=== PATIENT | male | born 1955 | race Caucasian/White ===

== ENCOUNTER 2020-07-28 08:03 | Outpatient (REF) | payer BC, SELFPAY ==
[2020-07-28 08:52] LABS: MANUAL DIFF FLAG NO
[2020-07-28 08:59] LABS: Basophils Percent Auto 0.5 % (0-2); Eosinophils Absolute Auto 0.1 X10*3/uL (0.0-0.4); Eosinophils Percent Auto 1.5 % (0-4); Hematocrit 41.7 % (42-52); Hemoglobin 13.8 g/dl (14.0-18.0); Imm Gran Abs Auto 0.03 X10*3/uL (0.00-0.03); Imm Gran Pct Auto 0.4 % (0.0-0.4); Lymphocytes Absolute Auto 2.4 X10*3/uL (1.2-4.9); Mean Corpuscular HGB Conc 33.1 g/dl (31.0-36.0); Mean Corpuscular Hemoglobin 31.2 pg (27.0-33.0); Mean Corpuscular Volume 94.3 fL (80-98); Mean Platelet Volume 10.1 fL (9.4-12.4); Monocytes Absolute Auto 0.6 X10*3/uL (0.1-1.2); Monocytes Percent Auto 7.1 % (2-11); Neutrophils Absolute Auto 4.6 X10*3/uL (2.0-8.3); Neutrophils Percent Auto 59.5 % (45-73); Platelet Count 256 X10*3/uL (160-400); Red Blood Count 4.42 X10*6/uL (4.60-5.80); Red Cell Distribution Width 13.8 % (11.0-16.0); White Blood Count 7.8 X10*3/uL (4.8-10.8)
[2020-07-28 09:21] LABS: Alanine Aminotransferase 23 U/L (0-40); Albumin Level 4.3 g/dL (3.5-5.0); Alkaline Phosphatase 51 U/L (39-117); Anion Gap 11 (12-20); Aspartate Amino Transferase 21 U/L (5-37); Bilirubin Total 0.9 mg/dL (0.0-1.0); Blood Urea Nitrogen 13 mg/dL (9-16); Carbon Dioxide 30 mmol/L (22-29); Chloride 104 mmol/L (96-108); Cholesterol 249 mg/dL; Estimated Glomerular Filt Rate > 60; Glucose Fasting 97 mg/dL (60-99); HDL Cholesterol 55 mg/dL; LDL Cholesterol Calculated 179 mg/dl; Potassium 4.8 mmol/L (3.3-5.1); Sodium 140 mmol/L (135-145); Total Protein 6.9 g/dL (6.5-8.0); Triglycerides 77 mg/dL
[2020-07-28 09:41] LABS: TSH reflex Free T4 0.51 uIU/mL (0.32-4.0)
[2020-07-30 05:02] LABS: Folate 10.1 ng/mL (> or = 4.0); Vitamin B12 443 pg/mL (200-900)
== END 2020-07-28 08:04 | disposition home or self-care (01) ==
LOC: HO.LAB 08:03
PROVIDERS: Visit Provider Internal Medicine
DX: Z12.5 Encounter for screening for malignant neoplasm of prostate (principal); N40.0 Benign prostatic hyperplasia without lower urinary tract symptoms; E78.00 Pure hypercholesterolemia, unspecified; N50.819 Testicular pain, unspecified; M19.90 Unspecified osteoarthritis, unspecified site
CPT/HCPCS: 36415; 80053; 80061; 82607; 82746; 84153; 84443; 85025

== ENCOUNTER 2021-07-24 14:42 | Outpatient (REF) | payer BC, SELFPAY ==
--- NOTE | ~2021-07-24 | XR_ITS ---
EXAMINATION: XR CHEST CLINICAL INFORMATION: Cough. COMPARISON: None TECHNIQUE: 2 views of the chest were obtained. FINDINGS: The lungs are hyperinflated but clear of acute process. The heart size and pulmonary vascularity is normal. No gross bony abnormality seen. XR/XR chest 2V IMPRESSION: Hyperinflated lungs without acute process.
[2021-07-24 15:05] LABS: MANUAL DIFF FLAG NO
[2021-07-24 15:14] LABS: Basophils Percent Auto 0.4 % (0-2); Eosinophils Percent Auto 0.6 % (0-4); Hematocrit 40.4 % (42.0-52.0); Hemoglobin 13.6 g/dl (14.0-18.0); Imm Gran Abs Auto 0.02 X10*3/uL (0.00-0.03); Imm Gran Pct Auto 0.3 % (0.0-0.4); Immature Retic Fraction 2.3 % (2.3-13.4); Lymphocytes Absolute Auto 1.9 X10*3/uL (1.2-4.9); Lymphocytes Percent Auto 26.9 % (20-40); Mean Corpuscular HGB Conc 33.7 g/dl (31.0-36.0); Mean Corpuscular Hemoglobin 31.2 pg (27.0-33.0); Mean Corpuscular Volume 92.7 fL (80.0-98.0); Monocytes Absolute Auto 0.7 X10*3/uL (0.1-1.2); Monocytes Percent Auto 10.5 % (2-11); Neutrophils Absolute Auto 4.2 x10*3/uL (2.0-8.3); Neutrophils Percent Auto 61.3 % (45-73); Platelet Count 223 X10*3/uL (160-400); Red Blood Count 4.36 X10*6/uL (4.60-5.80); Retic HGB Equivalent 35.6 pg (30.0-35.0); Reticulocyte Percent 0.8 % (0.5-1.8); Reticulocytes Absolute 0.034 X10*6/uL (0.026-0.095); White Blood Count 6.9 X10*3/uL (4.8-10.8)
[2021-07-24 15:35] LABS: Alanine Aminotransferase 22 U/L (0-40); Albumin Level 4.3 g/dL (3.5-5.0); Alkaline Phosphatase 56 U/L (39-117); Anion Gap 12 (12-20); Aspartate Amino Transferase 23 U/L (5-37); Bilirubin Total 0.5 mg/dL (0.0-1.0); Blood Urea Nitrogen 12 mg/dL (9-16); Calcium 9.6 mg/dL (8.4-10.2); Carbon Dioxide 31 mmol/L (22-29); Chloride 101 mmol/L (96-108); Cholesterol 247 mg/dL; Estimated Glomerular Filt Rate > 60; Glucose Random 114 mg/dL (60-115); HDL Cholesterol 50 mg/dL; Iron 57 mcg/dL (45-160); LDL Cholesterol Calculated 179 mg/dl; Percent Iron Saturation 20 % (15-50); Potassium 3.9 mmol/L (3.3-5.1); Sodium 140 mmol/L (135-145); Total Iron Binding Capacity 292 mcg/dL (228-428); Triglycerides 93 mg/dL; Unsaturated Iron Binding 235 ug/dL
[2021-07-24 15:55] LABS: Ferritin 165 ng/mL (20-250)
[2021-07-24 16:06] LABS: Folate 10.3 ng/mL (> or = 4.0); Vitamin B12 585 pg/mL (200-900)
== END 2021-07-24 14:43 | disposition home or self-care (01) ==
LOC: HO.XRAY 14:42
PROVIDERS: Absent Provider Nurse Practitioner Family; PCP Internal Medicine; Visit Provider Internal Medicine
DX: R05.9 Cough, unspecified (principal); E78.00 Pure hypercholesterolemia, unspecified; D64.9 Anemia, unspecified
CPT/HCPCS: 36415; 71046; 80053; 80061; 82607; 82728; 82746; 83540; 85025; 85045

== ENCOUNTER 2021-08-27 15:43 | Outpatient (REF) | payer BC, SELFPAY ==
--- NOTE | 2021-08-27 07:57 | PFT_ITS ---
INDICATION: Cough. SPIROMETRY: FEV1 to FVC 73% with an FEV1 of 3.65 L, which is 98% predicted, an FVC of 5.02 L, which is 101% predicted. No significant response to bronchodilators noted. Maximum voluntary ventilation 103% predicted. LUNG VOLUMES: Total lung capacity 99% predicted. DIFFUSION CAPACITY: DLCO 67% predicted. COMPARISONS: None. INTERPRETATION: No definitive obstructive nor restrictive ventilatory defects identified. No significant response to bronchodilators noted. Normal maximum voluntary ventilation. Lung volumes are also within normal limits. The patient does have a mild isolated diffusion impairment. Need to consider underlying pulmonary vascular conditions or occult interstitial lung conditions. Also need to correct for hemoglobin. If asthma is in the differential, methacholine challenge may be helpful in assessing for hyper-reactive airways. Otherwise, clinical correlation warranted. MD YANDY You/WANDA / [id number]
== END 2021-08-27 15:44 | disposition home or self-care (01) ==
LOC: HO.RESP 15:43
PROVIDERS: PCP Internal Medicine; Visit Provider Nurse Practitioner Family
DX: R05.9 Cough, unspecified (principal)
CPT/HCPCS: 94060; 94727; 94729

== ENCOUNTER → 2021-10-08 14:39 | Outpatient (BNVA) | payer BC, SELFPAY | PROVIDERS: PCP Internal Medicine; Visit Provider Internal Medicine Pulmonary Disease | DX: R94.2 Abnormal results of pulmonary function studies (principal) ==

== ENCOUNTER 2022-03-13 08:13 | Outpatient (REF) | payer MEDICARE, MEDICAID, SELFPAY ==
[2022-03-13 08:41] LABS: MANUAL DIFF FLAG NO
[2022-03-13 09:12] LABS: Basophils Percent Auto 0.5 % (0-2); Eosinophils Absolute Auto 0.1 X10*3/uL (0.0-0.4); Eosinophils Percent Auto 1.2 % (0-4); Hematocrit 43.9 % (42.0-52.0); Hemoglobin 14.4 g/dl (14.0-18.0); Imm Gran Abs Auto 0.03 X10*3/uL (0.00-0.03); Imm Gran Pct Auto 0.5 % (0.0-0.4); Immature Retic Fraction 5.4 % (2.3-13.4); Lymphocytes Percent Auto 33.9 % (20-40); Mean Corpuscular HGB Conc 32.8 g/dl (31.0-36.0); Mean Corpuscular Hemoglobin 30.6 pg (27.0-33.0); Mean Corpuscular Volume 93.4 fL (80.0-98.0); Mean Platelet Volume 10.4 fL (9.4-12.4); Monocytes Absolute Auto 0.4 X10*3/uL (0.1-1.2); Monocytes Percent Auto 7.2 % (2-11); Neutrophils Absolute Auto 3.4 x10*3/uL (2.0-8.3); Neutrophils Percent Auto 56.7 % (45-73); Platelet Count 229 X10*3/uL (160-400); Red Cell Distribution Width 13.5 % (11.0-16.0); Retic HGB Equivalent 36.3 pg (30.0-35.0); Reticulocyte Percent 0.9 % (0.5-1.8); Reticulocytes Absolute 0.043 X10*6/uL (0.026-0.095)
[2022-03-13 09:43] LABS: Alanine Aminotransferase 20 U/L (0-40); Albumin Level 4.6 g/dL (3.5-5.0); Alkaline Phosphatase 54 U/L (39-117); Anion Gap 15 (12-20); Aspartate Amino Transferase 23 U/L (5-37); Bilirubin Total 0.9 mg/dL (0.0-1.0); Blood Urea Nitrogen 14 mg/dL (9-16); Carbon Dioxide 28 mmol/L (22-29); Chloride 104 mmol/L (96-108); Cholesterol 272 mg/dL; Estimated Glomerular Filt Rate > 60; Glucose Random 108 mg/dL (60-115); HDL Cholesterol 59 mg/dL; Iron 102 mcg/dL (45-160); LDL Cholesterol Calculated 201 mg/dl; Percent Iron Saturation 32 % (15-50); Potassium 4.8 mmol/L (3.3-5.1); Sodium 142 mmol/L (135-145); Total Iron Binding Capacity 317 mcg/dL (228-428); Total Protein 7.5 g/dL (6.5-8.0); Triglycerides 62 mg/dL; Unsaturated Iron Binding 215 ug/dL
[2022-03-13 09:54] LABS: Estimated Average Glucose 111 mg/dL; Hemoglobin A1c % 5.5 %
[2022-03-13 10:07] LABS: Ferritin 112 ng/mL (20-250); Free T4 (Free Thyroxine) 1.22 ng/dL (0.71-1.85); Prostate Specific Antigen Scr 1.12 ng/mL (<0.05-4.0); Thyroid Stimulating Hormone 0.59 uIU/mL (0.32-4.0)
[2022-03-13 10:46] LABS: Folate 13.5 ng/mL (> or = 4.0); Vitamin B12 279 pg/mL (200-900)
== END 2022-03-13 08:14 | disposition home or self-care (01) ==
LOC: HO.LAB 08:13
PROVIDERS: PCP Internal Medicine; Visit Provider Internal Medicine
DX: D64.9 Anemia, unspecified (principal); N40.1 Benign prostatic hyperplasia with lower urinary tract symptoms; R35.0 Frequency of micturition; E78.00 Pure hypercholesterolemia, unspecified; R73.01 Impaired fasting glucose; Z12.5 Encounter for screening for malignant neoplasm of prostate
CPT/HCPCS: 36415; 80053; 80061; 82607; 82728; 82746; 83036; 83540; 84153; 84439; 84443; 85025; 85045

== ENCOUNTER 2022-06-21 08:41 | Outpatient (REF) | payer MEDICARE, MEDICAID, SELFPAY ==
[2022-06-21 09:04] LABS: Estimated Average Glucose 114 mg/dL; Hemoglobin A1c % 5.6 %
[2022-06-21 09:17] LABS: Alanine Aminotransferase 18 U/L (0-40); Albumin Level 4.2 g/dL (3.5-5.0); Alkaline Phosphatase 55 U/L (39-117); Anion Gap 12 (12-20); Aspartate Amino Transferase 20 U/L (5-37); Bilirubin Total 1.1 mg/dL (0.0-1.0); Blood Urea Nitrogen 12 mg/dL (9-16); Calcium 9.4 mg/dL (8.4-10.2); Carbon Dioxide 28 mmol/L (22-29); Chloride 107 mmol/L (96-108); Cholesterol 195 mg/dL; Estimated Glomerular Filt Rate > 60; Glucose Random 101 mg/dL (60-115); HDL Cholesterol 53 mg/dL; LDL Cholesterol Calculated 130 mg/dl; Potassium 4.3 mmol/L (3.3-5.1); Sodium 143 mmol/L (135-145); Total Protein 6.8 g/dL (6.5-8.0); Triglycerides 64 mg/dL
== END 2022-06-21 08:42 | disposition home or self-care (01) ==
LOC: HO.LAB 08:41
PROVIDERS: PCP Internal Medicine; Visit Provider Internal Medicine
DX: R73.01 Impaired fasting glucose (principal); E78.00 Pure hypercholesterolemia, unspecified
CPT/HCPCS: 36415; 80053; 80061; 83036

== ENCOUNTER 2023-03-14 08:36 | Outpatient (REF) | payer OTHER, SELFPAY ==
[2023-03-14 09:07] LABS: MANUAL DIFF FLAG NO
[2023-03-14 09:19] LABS: Basophils Percent Auto 0.4 % (0-2); Eosinophils Absolute Auto 0.1 X10*3/uL (0.0-0.4); Eosinophils Percent Auto 1.3 % (0-4); Hematocrit 41.8 % (42.0-52.0); Hemoglobin 13.9 g/dl (14.0-18.0); Imm Gran Abs Auto 0.02 X10*3/uL (0.00-0.03); Imm Gran Pct Auto 0.3 % (0.0-0.4); Lymphocytes Absolute Auto 2.3 X10*3/uL (1.2-4.9); Lymphocytes Percent Auto 33.6 % (20-40); Mean Corpuscular HGB Conc 33.3 g/dl (31.0-36.0); Mean Corpuscular Hemoglobin 31.2 pg (27.0-33.0); Mean Corpuscular Volume 93.7 fL (80.0-98.0); Mean Platelet Volume 9.8 fL (9.4-12.4); Monocytes Absolute Auto 0.5 X10*3/uL (0.1-1.2); Monocytes Percent Auto 7.8 % (2-11); Neutrophils Absolute Auto 3.9 x10*3/uL (2.0-8.3); Neutrophils Percent Auto 56.6 % (45-73); Platelet Count 254 X10*3/uL (160-400); Red Blood Count 4.46 X10*6/uL (4.60-5.80); Red Cell Distribution Width 13.8 % (11.0-16.0); White Blood Count 6.9 X10*3/uL (4.8-10.8)
[2023-03-14 09:25] LABS: Estimated Average Glucose 108 mg/dL; Hemoglobin A1c % 5.4 % (<6.0)
[2023-03-14 10:00] LABS: Alanine Aminotransferase 23 U/L (0-40); Albumin Level 4.3 g/dL (3.5-5.0); Alkaline Phosphatase 58 U/L (39-117); Anion Gap 13 (12-20); Aspartate Amino Transferase 23 U/L (5-37); Bilirubin Total 0.6 mg/dL (0.0-1.0); Blood Urea Nitrogen 14 mg/dL (9-16); Calcium 9.8 mg/dL (8.4-10.2); Carbon Dioxide 28 mmol/L (22-29); Chloride 104 mmol/L (96-108); Cholesterol 179 mg/dL (<200); Estimated Glomerular Filt Rate > 60; Glucose Random 108 mg/dL (60-115); HDL Cholesterol 58 mg/dL (>40); LDL Cholesterol Calculated 110 mg/dL (<100); Potassium 4.1 mmol/L (3.3-5.1); Sodium 141 mmol/L (135-145); Total Protein 7.3 g/dL (6.5-8.0); Triglycerides 56 mg/dL (<150)
[2023-03-14 10:17] LABS: Free T4 (Free Thyroxine) 1.11 ng/dL (0.71-1.85); Thyroid Stimulating Hormone 0.86 uIU/mL (0.32-4.0)
[2023-03-14 10:29] LABS: Folate 9.7 ng/mL (> or = 4.0); Vitamin B12 761 pg/mL (200-900)
== END 2023-03-14 08:37 | disposition home or self-care (01) ==
LOC: HO.LAB 08:36
PROVIDERS: PCP Internal Medicine; Visit Provider Internal Medicine
DX: E78.00 Pure hypercholesterolemia, unspecified (principal); Z12.5 Encounter for screening for malignant neoplasm of prostate; R73.02 Impaired glucose tolerance (oral)
CPT/HCPCS: 36415; 80053; 80061; 82607; 82746; 83036; 84153; 84439; 84443; 85025

== ENCOUNTER 2023-03-24 14:48 | Outpatient (AMB) | payer OTHER, MEDICAID, SELFPAY ==
--- NOTE | 2023-03-24 15:09 | AM.OFFVISMDC ---
Intake Vital Signs 03/24/23 15:11 Height 6 ft Weight 161 lb BMI 21.8 BP 100/66 Blood Pressure Location Lt brachial Position Sitting Pulse 65 Pulse Source Pulse Oximeter Pulse Oximetry (%) 97 Oxygen Delivery Method Room Air Intake Visit Reasons: V G0439 Intake Note: Patient is here for an Annual Wellness Visit. Pulmonology Technician Required: No Shipping Room Supervisor: Shipping Room Supervisor offered & declined Accompanied by: Self / Same As Patient Allergies Seasonal Allergies Allergy (Mild, Verified 03/24/23 15:11) watery eyes Medication List - Last Reconciled 03/24/23 by Yonathan Spencer MD albuterol sulfate 90 mcg/actuation (ProAir HFA) 2 puffs inhalation Q4-6H PRN cetirizine 10 mg PO DAILY PRN fluticasone propionate 50 mcg/actuation (Flonase Allergy Relief) 1 spray intranasal DAILY simvastatin 5 mg PO BEDTIME terazosin 10 mg PO BEDTIME HPI [facility] G0439 HPI Details 67-year-old male with impaired glucose tolerance hypercholesterolemia BPH coming in for annual well visit last seen in June 2022 patient's colonoscopy is up-to-date May 2018, noted weight loss and has been in [facility] site and walking. occ dizzy and nausea, getting otc voltareren gel [facility] Medical History (Updated 03/24/23 @ 16:04 by Yonathan Spencer MD) Degenerative disc disease Osteoarthritis Anxiety Tubular adenoma of colon Hypercholesterolemia BPH (benign prostatic hyperplasia) Insomnia Peripheral vascular disease Vitamin D deficiency Surgical History History of lumbar surgery History of hip surgery History of right knee surgery History of tonsillectomy Family History (Updated 03/24/23 @ 15:11 by ARI Desai) Father No problems noted. Mother Lung cancer Maternal Grandfather Myocardial infarction Maternal Uncle Prostate cancer Brain cancer Paternal Uncle Esophageal cancer Sister Cancer Paternal Grandmother Breast cancer Son No problems noted. Son No problems noted. Daughter No problems noted. Social History Housing: House Alcohol intake: former Patient Tobacco Use Status: Never used Tobacco e-Cigarette/Vaping Use: Former Use Current occupational status: employed Cognitive needs: No Hearing needs: No Vision needs: Yes Questionnaire Medicare Wellness Checkup [age] 65-70 What gender do you identify with?: male During the past 4 weeks, how much have you been bothered by emotional problems such as feeling anxious, depressed, irritable, sad or downhearted, and blue?: not at all During the past 4 weeks, has your physical & emotional health limited your social activities with family, friends, neighbors, or groups?: slightly During the past 4 weeks, how much bodily pain have you generally had?: severe pain During the past 4 weeks, was someone available to help you if you needed & wanted help?: yes, as much as I wanted During the past 4 weeks, what was the hardest physical activity you could do for at least 2 minutes?: moderate Can you get to places out of walking distance without help? (For eg., can you travel alone on buses, taxis or drive your car?): Yes Can you go shopping for groceries or clothes without someone's help?: Yes Can you prepare your own meals?: Yes Can you do your housework without help?: Yes Because of any health problems, do you need the help of another person with your personal care needs such as eating, bathing, dressing or getting around the house?: No Can you handle your own money without help?: Yes During the past 4 weeks, how would you rate your health in general?: fair During the past 4 weeks how have things been going for you?: good & bad parts about equal Are you having difficulties driving your car?: no Do you always fasten your seat belt when you are in a car?: yes, usually During past 4 weeks, have you been bothered by the following: never: Trouble eating well?, Teeth or denture problems? and Problems using the telephone?, seldom: Falling or dizzy when standing up and Sexual problems? and sometimes: Tiredness or fatigue? Have you fallen 2 or more times in the past year?: No Are you afraid of falling?: No Are you a smoker?: no During the past 4 weeks, how many drinks of wine, beer, or other alcoholic beverages did you have?: no alcohol at all Do you exercise for about 20 minutes 3 or more times a week?: no, I usually do not exercise this much Have you been given information to help with the following?: no: Hazards in your house that might hurt you? and no: Keeping track of your medications? How often do you have trouble taking medicines the way you have been told to take them?: I always take medicine as prescribed How confident are you that you can control & manage most of your health problems?: very confident What is your race?: White PHQ-9 Over the last 2 weeks, how often have you been bothered by any of the following problems? 1. Little interest or pleasure in doing things: not at all 2. Feeling down, depressed, or hopeless: not at all 3. Trouble falling or staying asleep, or sleeping too much: more than half the days 4. Feeling tired or having little energy: not at all 5. Poor appetite or overeating: not at all 6. Feeling bad about yourself - or that you are a failure or have let yourself or your family down: not at all 7. Trouble concentrating on things, such as reading the newspaper or watching television: not at all 8. Moving or speaking so slowly that other people could have noticed. Or the opposite - being so fidgety or restless that you have been moving around a lot more than usual: several days 9. Thoughts that you would be better off or of hurting yourself in some way: not at all Total score: 3 Source: Developed by Drs. Andrei Chavez, Jaycee Lux, Miguel Angel Banda and colleagues, with an educational alfonso from [employer]. Thrive Questionnaire Date Thrive assessed: 06/26/22 JAVED-7 AMB Questionnaire JAVED-7 Date JAVED - 7 assessed: 06/26/22 Source: Developed by Drs. Andrei Chavez, Jaycee Lux, Miguel Angel Banda and colleagues, with an educational alfonso from [employer]. Review of Systems Const Denies poor appetite and Denies weakness Eyes Denies no additional complaints ENT Reports Normal hearing present, Denies dizziness, Denies nasal congestion, Denies tinnitus and Denies sore throat Card Denies chest pain, Denies syncope, Denies rapid heart rate and Denies dyspnea Resp Denies cough and Denies dyspnea GI Denies change in stool character, Reports constipation, Denies diarrhea, Denies nausea and Denies vomiting Denies dysuria and Denies urinary frequency Neuro Reports Normal hearing present, Denies confusion, Denies dizziness, Denies syncope and Denies weakness Psych Denies confusion Physical Exam Vital Signs: Last Vital Signs Pulse 65 03/24/23 15:11 BP 100/66 03/24/23 15:11 Pulse Ox 97 03/24/23 15:11 Oxygen Delivery Method Room Air 03/24/23 15:11 BMI result Body Mass Index 21.8 Const General: No confusion Orientation/consciousness: No confusion HEENT Head: Yes normocephalic Ears: external ears normal and TM's normal bilaterally Face and sinus: Yes normal facial exam Mouth: moist mucous membranes Throat: Yes tonsils normal Eyes Conjunctivae: conjunctivae normal Pupils: Equal, round and reactive pupils present and Pupil accommodation reflex normal Direct Ophthalmoscopy: normal light reflex Neck Neck: No lymphadenopathy Thyroid: Thyroid normal Chest Chest palpation & inspection: normal inspection of the chest Resp Effort & Inspection: normal respiratory effort and no audible wheezes Auscultation: clear to auscultation bilaterally, no crackles, no wheezes and lung sounds not diminished Cardio Rate: regular rate Rhythm: regular rhythm Peripheral pulses: radial pulses present and dorsalis pedis present GI Palpation (GI): no masses Auscultation: normal bowel sounds and normoactive bowel sounds Rectal Exam - Male: Yes deferred Skin General skin exam: no rashes or lesions noted Rashes: no rashes Neuro General: No confusion Cranial nerves: Yes Equal, round and reactive pupils present and Yes Normal hearing present Cognition (Neuro): normal cognition Gait exam (Neuro): Normal gait present Motor exam (neuro): 5/5 motor strength present throughout Deep tendon reflexes (DTR's): Right brachioradialis reflex intensity grade: 2+, Left brachioradialis reflex intensity grade: 2+, Right patellar reflex intensity grade: 2+ and Left patellar reflex intensity grade: 2+ Extrem General: No edema Assessment & Plan Assessment & Plan (1) Annual physical exam: Code(s): Z00.00 - Encounter for general adult medical examination without abnormal findings (2) Impaired fasting blood sugar: Code(s): R73.01 - Impaired fasting glucose Plan: Decrease the amount of carbohydrate intake, pasta, bread, rice and potatoes are all sugar and that is aside from all the sweet stuff, remember that fruits are good but they are Sweet also. (3) Hypercholesterolemia: Code(s): E78.00 - Pure hypercholesterolemia, unspecified Plan: Avoid fried foods, chicken skin, eggs, butter margarine, pastries and meat. Be it pork or beef they have a lot of cholesterol LDL goal of less than 130 and triglyceride of less than 150 patient on simvastatin 5 mg once a (4) Generalized anxiety disorder: Code(s): F41.1 - Generalized anxiety disorder (5) BPH (benign prostatic hyperplasia): Code(s): N40.0 - Benign prostatic hyperplasia without lower urinary tract symptoms Qualifiers: Lower urinary tract symptom presence: symptoms present Lower urinary tract symptom detail: urinary frequency Qualified Code(s): N40.1 - Benign prostatic hyperplasia with lower urinary tract symptoms; R35.0 - Frequency of micturition Plan: Continue with terazosin 10 mg once a day (6) Mild anemia: Code(s): D64.9 - Anemia, unspecified Plan: Stable (7) Vision changes: Code(s): H53.9 - Unspecified visual disturbance (8) Hearing difficulty: Code(s): H91.90 - Unspecified hearing loss, unspecified ear (9) Bilateral hand numbness: Code(s): R20.0 - Anesthesia of skin (10) Bilateral hand pain: Code(s): M79.641 - Pain in right hand; M79.642 - Pain in left hand Orders: Orders NE electromyogram (EMG) Today R20.0 - Anesthesia of skin NE nerve conduction velocity Today R20.0 - Anesthesia of skin XR hand LT 2V Today M79.641 - Pain in right hand, M79.642 - Pain in left hand XR hand RT 2V Today M79.641 - Pain in right hand, M79.642 - Pain in left hand Referrals Speech and Hearing Referral H91.90 - Unspecified hearing loss, unspecified ear Ophthalmology Referral H53.9 - Unspecified visual disturbance Quality Reporting (2019) Depression/Bipolar (159/160/161/177) PHQ-9: Total score: 3 Coding Level of Care Code Medicare Subsequent (G0439) Diagnoses Annual physical exam Z00.00 Impaired fasting blood sugar R73.01 Hypercholesterolemia E78.00 Generalized anxiety disorder F41.1 Benign prostatic hyperplasia with urinary frequency N40.1; R35.0 Lower urinary tract symptom presence: symptoms present Lower urinary tract symptom detail: urinary frequency Mild anemia D64.9 Vision changes H53.9 Hearing difficulty H91.90 Bilateral hand numbness R20.0 Bilateral hand pain M79.641; M79.642
[2023-03-24 15:11] VITALS: BP 100/66; PULSE 65; O2SAT 97; BMI 21.8
== END 2023-03-24 16:12 | disposition home or self-care (01) ==
PROVIDERS: Visit Provider Internal Medicine
DX: Z00.00 Encounter for general adult medical examination without abnormal findings (principal); R73.01 Impaired fasting glucose; E78.00 Pure hypercholesterolemia, unspecified; F41.1 Generalized anxiety disorder; N40.1 Benign prostatic hyperplasia with lower urinary tract symptoms; R35.0 Frequency of micturition; D64.9 Anemia, unspecified; H53.9 Unspecified visual disturbance; H91.90 Unspecified hearing loss, unspecified ear; R20.0 Anesthesia of skin; M79.641 Pain in right hand; M79.642 Pain in left hand
CPT/HCPCS: G0439

== ENCOUNTER 2023-04-08 09:37 | Outpatient (REF) | payer OTHER, SELFPAY ==
--- NOTE | ~2023-04-08 | XR_ITS ---
EXAMINATION: XR HAND, RIGHT CLINICAL INFORMATION: Pain COMPARISON: None available. TECHNIQUE: PA, lateral, and oblique views of the right hand. FINDINGS: There are mild degenerative changes at the first carpometacarpal joint and there is chondrocalcinosis in the ulnar component of the radiocarpal joint. No evidence of fractures soft tissues unremarkable. XR/XR hand RT 2V IMPRESSION: Chondrocalcinosis and mild degenerative changes of the first carpometacarpal joint.
--- NOTE | ~2023-04-08 | XR_ITS ---
EXAMINATION: XR HAND, LEFT CLINICAL INFORMATION: Pain COMPARISON: None available. TECHNIQUE: PA, lateral, and oblique views of the left hand. FINDINGS: There is subchondral cysts identified in the scaphoid and there are mild degenerative changes at the base of the first carpometacarpal joint. There is no evidence of fractures. Bones are well-mineralized. Soft tissues unremarkable. XR/XR hand LT 2V IMPRESSION: Mild degenerative changes with cystic spaces in the scaphoid and degenerative changes at the first carpometacarpal joint.
--- NOTE | 2023-04-08 09:48 | EMG_ITS ---
Please see scanned EMG / Nerve Conduction Report. MTDD
== END 2023-04-08 09:38 | disposition home or self-care (01) ==
LOC: HO.NEURO 09:37
PROVIDERS: PCP Internal Medicine; Visit Provider Internal Medicine
DX: R20.0 Anesthesia of skin (principal); M79.641 Pain in right hand; M79.642 Pain in left hand
CPT/HCPCS: 73120; 95885; 95913

== ENCOUNTER 2023-07-02 14:43 | Outpatient (AMB) | payer OTHER, MEDICAID, SELFPAY ==
--- NOTE | 2023-07-02 14:55 | MHC.PC.OV ---
Vital Signs 07/02/23 14:56 Height 6 ft Weight 167 lb BMI 22.6 BP 118/74 Blood Pressure Location Lt brachial Position Sitting Pulse 63 Pulse Source Pulse Oximeter Pulse Oximetry (%) 98 Oxygen Delivery Method Room Air Intake Visit Reasons: 3 month f/u Intake Note: Patient is here to follow up on 3 months Chief Projectionist Required: No Allergies Seasonal Allergies Allergy (Mild, Verified 07/02/23 14:56) watery eyes Medication List - Last Reconciled 07/02/23 by Yonathan Spencer MD albuterol sulfate 90 mcg/actuation (ProAir HFA) 2 puffs inhalation Q4-6H PRN cetirizine 10 mg PO DAILY PRN fluticasone propionate 50 mcg/actuation (Flonase Allergy Relief) 1 spray intranasal DAILY meloxicam 15 mg PO DAILY simvastatin 5 mg PO BEDTIME terazosin 10 mg PO BEDTIME Tobacco use date assessed: 07/02/23 Fall risk assessment: No Falls in past year Last assessed Fall Risk: 07/02/23 Dental Screening Dental Screen Date: 07/02/23 Did you have a dental visit in the last 12 months?: Yes Did you have a dental problem in the last 6 months where you did not have access to dental care?: No Was dental information given to patient?: Patient has dentist HPI 3 month f/u HPI Details 67-year-old male with impaired glucose tolerance hypercholesterolemia generalized anxiety disorder BPH last seen in February 2023. Patient is here for follow-up. Patient had some pain on the right hand and an x-ray done showing chondrocalcinosis and mild degenerative changes on the 1st carpometacarpal joint.. He had some numbness also and a nerve conduction test showing mild to moderate left carpal tunnel syndrome and a mild carpal tunnel on the right.. As for the left hand there is mild degenerative changes in the hand [facility] Medical History (Updated 07/02/23 @ 15:36 by Yonathan Spencer MD) Bilateral hand numbness Bilateral hand pain Degenerative disc disease Osteoarthritis Anxiety Tubular adenoma of colon Hypercholesterolemia BPH (benign prostatic hyperplasia) Insomnia Peripheral vascular disease Vitamin D deficiency Surgical History History of lumbar surgery History of hip surgery History of right knee surgery History of tonsillectomy Family History (Updated 03/24/23 @ 15:11 by ARI Desai) Father No problems noted. Mother Lung cancer Maternal Grandfather Myocardial infarction Maternal Uncle Prostate cancer Brain cancer Paternal Uncle Esophageal cancer Sister Cancer Paternal Grandmother Breast cancer Son No problems noted. Son No problems noted. Daughter No problems noted. Social History Housing: House Alcohol intake: former Patient Tobacco Use Status: Never used Tobacco e-Cigarette/Vaping Use: Former Use Current occupational status: employed Cognitive needs: No Hearing needs: No Vision needs: Yes Questionnaire PHQ-9 Over the last 2 weeks, how often have you been bothered by any of the following problems? 1. Little interest or pleasure in doing things: not at all 2. Feeling down, depressed, or hopeless: not at all 3. Trouble falling or staying asleep, or sleeping too much: more than half the days 4. Feeling tired or having little energy: not at all 5. Poor appetite or overeating: not at all 6. Feeling bad about yourself - or that you are a failure or have let yourself or your family down: not at all 7. Trouble concentrating on things, such as reading the newspaper or watching television: not at all 8. Moving or speaking so slowly that other people could have noticed. Or the opposite - being so fidgety or restless that you have been moving around a lot more than usual: several days 9. Thoughts that you would be better off or of hurting yourself in some way: not at all Total score: 3 Source: Developed by Drs. Andrei Chavez, Jaycee Lux, Miguel Angel Banda and colleagues, with an educational alfonso from [employer]. Thrive Questionnaire Date Thrive assessed: 07/02/23 I am a: Patient What is your living situation today?: I have a steady place to live Within the past 12 months, did the food you bought not last and you didn't have the money to get more?: Never true Within the past 12 months, did you worry whether your food would run out before you got money to buy more?: Never true Do you have trouble paying for medicines?: No Do you have trouble getting transportation to medical appointments?: No Do you have trouble paying your heating and electricity bill?: No Do you have trouble taking care of your child, family member or friend?: No Do you have trouble with day-to-day activities such as bathing, preparing meals, shopping, managing finances, etc.?: No Are you currently unemployed and looking for a job?: No Are you interested in more education?: No Please select the resources that you would like help with: None THRIVE Score: 0 AUDIT C Alcohol Use Questionnaire (AUDIT-C) 1. How often do you have a drink containing alcohol?: Never 2. How many drinks containing alcohol do you have on a typical day when you are drinking?: 1 or 2 (0) 3. How often do you have six or more drinks on one occasion?: Never Total Score: 0 Score Reviewed/Action Taken: No JAVED-7 AMB Questionnaire JAVED-7 Date JAVED - 7 assessed: 06/26/22 Source: Developed by Drs. Andrei hCavez, Jaycee Lux, Miguel Angel Banda and colleagues, with an educational alfonso from [employer]. Physical exam (Primary Care) Vital Signs: Last Vital Signs Pulse 63 07/02/23 14:56 BP 118/74 07/02/23 14:56 Pulse Ox 98 07/02/23 14:56 Oxygen Delivery Method Room Air 07/02/23 14:56 BMI result Body Mass Index 22.6 Tobacco/Smoking Status: Tobacco use Status Tobacco use date assessed 07/02/23 07/02/23 14:57 Patient Tobacco Use Status Never used Tobacco 07/02/23 14:57 e-Cigarette/Vaping Use Former Use 07/02/23 14:57 PHQ-9: PHQ-9 Score PHQ-9: Total score 3 07/02/23 14:57 Thrive Assessment: Date of Thrive Assessment Date Thrive assessed 07/02/23 07/02/23 14:57 Const General: alert; No acute distress Eyes Conjunctivae: conjunctivae normal Resp Auscultation: clear to auscultation bilaterally Cardio Rate: regular rate Rhythm: regular rhythm GI Inspection: Yes normal to inspection Extrem General: Yes normal to inspection and No edema Assessment and Plan Assessment & Plan (1) Carpal tunnel syndrome on both sides: Comment: March 2023 left this mild to moderatel, right is mild Code(s): G56.03 - Carpal tunnel syndrome, bilateral upper limbs Plan: Discussion about treatment as well as orthopedic referral (2) Osteoarthritis, hand: Code(s): M19.049 - Primary osteoarthritis, unspecified hand Plan: Keep active discussion about Voltaren gel (3) Hypercholesterolemia: Code(s): E78.00 - Pure hypercholesterolemia, unspecified Plan: Avoid fried foods, chicken skin, eggs, butter margarine, pastries and meat. Be it pork or beef they have a lot of cholesterol LDL goal of less than 130 and triglyceride of less than 150. On simvastatin (4) Anxiety: Code(s): F41.9 - Anxiety disorder, unspecified (5) Cough: Code(s): R05.9 - Cough, unspecified Plan: patient has been prescribed controlled inhaler and rescue but has not receive this . he was seen by Dr. Monet ARMENDARIZ Orders: Orders Prostate Specific Antigen Scr 6 Months E78.00 - Pure hypercholesterolemia, unspecified Complete Blood Count Auto Diff 6 Months E78.00 - Pure hypercholesterolemia, unspecified Comprehensive Met. Panel 6 Months E78.00 - Pure hypercholesterolemia, unspecified Free T4 (Free Thyroxine) 6 Months E78.00 - Pure hypercholesterolemia, unspecified Thyroid Stimulating Hormone 6 Months E78.00 - Pure hypercholesterolemia, unspecified Vitamin B12 and Folate 6 Months E78.00 - Pure hypercholesterolemia, unspecified Lipid Panel 6 Months E78.00 - Pure hypercholesterolemia, unspecified Medications: New meloxicam 15 mg PO DAILY 30 tabs 1RF M19.049 - Primary osteoarthritis, unspecified hand albuterol sulfate 90 mcg/actuation (Ventolin HFA) 2 puffs inhalation Q6H PRN 8.5 grams 0RF shortness of breath or wheezing R05.9 - Cough, unspecified fluticasone propion-salmeterol 115-21 mcg/actuation administer with spacer 2 puffs inhalation BID 12 grams 0RF M19.049 - Primary osteoarthritis, unspecified hand Discontinued albuterol sulfate 90 mcg/actuation (ProAir HFA) Discontinued Reason: Doctor's Order 2 puffs inhalation Q4-6H PRN 8.5 grams 0RF shortness of breath or wheezing R05.9 - Cough, unspecified diclofenac sodium 1% (Arthritis Pain (diclofenac)) apply to single knee, ankle, foot; for foot includes sole/toes/top of foot Discontinued Reason: Doctor's Order 4 grams topical QID 100 grams 4RF R20.0 - Anesthesia of skin Coding Level of Care Code Est Pt Level 4 (25441) Diagnoses Carpal tunnel syndrome on both sides G56.03 Osteoarthritis, hand M19.049 Hypercholesterolemia E78.00 Anxiety F41.9 Cough R05.9
[2023-07-02 14:56] VITALS: BP 118/74; PULSE 63; O2SAT 98; BMI 22.6
== END 2023-07-02 15:55 | disposition home or self-care (01) ==
PROVIDERS: PCP Internal Medicine; Visit Provider Internal Medicine
DX: G56.03 Carpal tunnel syndrome, bilateral upper limbs (principal); M19.049 Primary osteoarthritis, unspecified hand; E78.00 Pure hypercholesterolemia, unspecified; F41.9 Anxiety disorder, unspecified; R05.9 Cough, unspecified
CPT/HCPCS: 99214

== ENCOUNTER 2023-12-18 08:57 | Outpatient (REF) | payer OTHER, SELFPAY ==
--- NOTE | ~2023-12-18 | XR_ITS ---
EXAMINATION: XR CHEST 2 VIEWS CLINICAL INFORMATION: Cough. COMPARISON: Chest radiographs dated 07/24/2021. TECHNIQUE: Frontal and lateral views of the chest were obtained. FINDINGS: The heart, great vessels, pulmonary vasculature and mediastinum are normal. There is a full inspiration. The lungs show no focal infiltrate, effusion or pneumothorax. There is no acute osseous abnormality. XR/XR chest 2V IMPRESSION: No active cardiopulmonary disease.
== END 2023-12-18 08:58 | disposition home or self-care (01) ==
LOC: HO.XRAY 08:57
PROVIDERS: PCP Internal Medicine; Visit Provider Allergy & Immunology
DX: R05.9 Cough, unspecified (principal); R06.02 Shortness of breath
CPT/HCPCS: 71046

== ENCOUNTER 2024-03-14 07:38 | Outpatient (REF) | payer OTHER, SELFPAY ==
[2024-03-14 10:12] LABS: MANUAL DIFF FLAG NO
[2024-03-14 10:28] LABS: Basophils Percent Auto 0.5 % (0-2); Eosinophils Absolute Auto 0.1 X10*3/uL (0.0-0.4); Eosinophils Percent Auto 1.6 % (0-4); Hematocrit 39.9 % (42.0-52.0); Hemoglobin 13.3 g/dl (14.0-18.0); Imm Gran Abs Auto 0.02 X10*3/uL (0.00-0.03); Imm Gran Pct Auto 0.3 % (0.0-0.4); Lymphocytes Absolute Auto 2.3 X10*3/uL (1.2-4.9); Lymphocytes Percent Auto 36.2 % (20-40); Mean Corpuscular HGB Conc 33.3 g/dl (31.0-36.0); Mean Corpuscular Volume 96.1 fL (80.0-98.0); Mean Platelet Volume 10.9 fL (9.4-12.4); Monocytes Absolute Auto 0.5 X10*3/uL (0.1-1.2); Neutrophils Absolute Auto 3.5 x10*3/uL (2.0-8.3); Neutrophils Percent Auto 54.4 % (45-73); Platelet Count 206 X10*3/uL (160-400); Red Blood Count 4.15 X10*6/uL (4.60-5.80); Red Cell Distribution Width 13.4 % (11.0-16.0); White Blood Count 6.4 X10*3/uL (4.8-10.8)
[2024-03-14 11:07] LABS: Folate 10.6 ng/mL (> or = 4.0); Prostate Specific Antigen Scr 1.29 ng/mL (<0.05-4.0); Vitamin B12 593 pg/mL (200-900)
[2024-03-14 11:38] LABS: Alanine Aminotransferase 29 U/L (0-40); Albumin Level 4.2 g/dL (3.5-5.0); Alkaline Phosphatase 50 U/L (39-117); Anion Gap 12 (12-20); Aspartate Amino Transferase 32 U/L (5-37); Bilirubin Total 0.8 mg/dL (0.0-1.0); Blood Urea Nitrogen 13 mg/dL (9-16); Carbon Dioxide 29 mmol/L (22-29); Chloride 106 mmol/L (96-108); Cholesterol 184 mg/dL (<200); Estimated Glomerular Filt Rate > 60; Glucose Random 95 mg/dL (60-115); HDL Cholesterol 58 mg/dL (>40); LDL Cholesterol Calculated 113 mg/dL (<100); Potassium 3.8 mmol/L (3.3-5.1); Sodium 143 mmol/L (135-145); Total Protein 6.7 g/dL (6.5-8.0); Triglycerides 66 mg/dL (<150)
[2024-03-14 11:48] LABS: Free T4 (Free Thyroxine) 1.37 ng/dL (0.71-1.85)
== END 2024-03-14 07:39 | disposition home or self-care (01) ==
LOC: HO.HMGCLDS 07:38
PROVIDERS: PCP Internal Medicine; Visit Provider Internal Medicine
DX: E78.00 Pure hypercholesterolemia, unspecified (principal); Z12.5 Encounter for screening for malignant neoplasm of prostate
CPT/HCPCS: 36415; 80053; 80061; 82607; 82746; 84153; 84439; 84443; 85025

== ENCOUNTER 2024-03-29 13:31 | Outpatient (AMB) | payer OTHER, SELFPAY ==
[2024-03-29 13:46] VITALS: BP 118/58; PULSE 56; O2SAT 98; BMI 21.3
--- NOTE | 2024-03-29 13:46 | A.OFFVIS_ITS ---
Intake Vital Signs 03/29/24 13:46 Height 6 ft Weight 157 lb BMI 21.3 BP 118/58 L Blood Pressure Location Lt brachial Position Sitting Pulse 56 Pulse Source Pulse Oximeter Pulse Oximetry (%) 98 Oxygen Delivery Method Room Air Intake Visit Reasons: V G0439 Allergies Seasonal Allergies Allergy (Mild, Verified 03/29/24 13:47) watery eyes Medication List - Last Reconciled 03/29/24 by Yonathan Spencer MD albuterol sulfate 90 mcg/actuation (Ventolin HFA) 2 puffs inhalation Q6H PRN cetirizine 10 mg PO DAILY PRN fluticasone furoate-vilanterol 100-25 mcg/dose (Breo Ellipta) 1 inh inhalation DAILY fluticasone propionate 50 mcg/actuation (Flonase Allergy Relief) 1 spray intranasal DAILY nabumetone 500 mg PO BID simvastatin 5 mg PO BEDTIME terazosin 10 mg PO BEDTIME HPI [facility] G0439 HPI Details 68-year-old male with bilateral carpal t unnel syndrome, hypercholesterolemia generalized anxiety disorder BPH impaired glucose tolerance coming in for an annual well visit. Last seen in 07/14/2023. Patient's last c olonoscopy was done in 2018. Review of the notes patient saw the Allergy and immunology in February 28 having animal allergy advised immunotherapy on Breo on 100/25 Ellipta once a day Ventolin inhaler Flonase montelukast Zyrtec. Colonoscopy June 2012 Dr. 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 Solomon noted weight loss but apetitte is good. complains of anger issues, counselling not done. fall tripping shoe laces 11/2023 [facility] Medical History (Updated 03/29/24 @ 13:58 by Yonathan Spencer MD) Bilateral hand numbness Bilateral hand pain Degenerative disc disease Osteoarthritis Anxiety Tubular adenoma of colon Hypercholesterolemia BPH (benign prostatic hyperplasia) Insomnia Peripheral vascular disease Vitamin D deficiency Surgical History History of lumbar surgery History of hip surgery History of right knee surgery History of tonsillectomy Family History (Updated 03/24/23 @ 15:11 by ARI Desai) Father No problems noted. Mother Lung cancer Maternal Grandfather Myocardial infarction Maternal Uncle Prostate cancer Brain cancer Paternal Uncle Esophageal cancer Sister Cancer Paternal Grandmother Breast cancer Son No problems noted. Son No problems noted. Daughter No problems noted. Social History (Updated 03/29/24 @ 14:15 by Yonathan Spencer MD) Housing: House Alcohol intake: current Comment: 1 beer Q 3 months Patient Tobacco Use Status: Never used Tobacco Years Smoked: smoke weed e-Cigarette/Vaping Use: Former Use Current occupational status: employed Cognitive needs: No Hearing needs: No Vision needs: Yes Questionnaire Medicare Wellness Checkup What [age] 65-70 What gender do you identify with?: male During the past 4 weeks, how much have you been bothered by emotional problems such as feeling anxious, depressed, irritable, sad or downhearted, and blue?: slightly During the past 4 weeks, has your physical & emotional health limited your social activities with family, friends, neighbors, or groups?: not at all During the past 4 weeks, how much bodily pain have you generally had?: very mild pain During the past 4 weeks, was someone available to help you if you needed & wanted help?: no, not at all During the past 4 weeks, what was the hardest physical activity you could do for at least 2 minutes?: moderate Can you get to places out of walking distance without help? (For eg., can you travel alone on buses, taxis or drive your car?): Yes Can you go shopping for groceries or clothes without someone's help?: Yes Can you prepare your own meals?: Yes Can you do your housework without help?: Yes Because of any health problems, do you need the help of another person with your personal care needs such as eating, bathing, dressing or getting around the house?: No Can you handle your own money without help?: Yes During the past 4 weeks, how would you rate your health in general?: good During the past 4 weeks how have things been going for you?: good & bad parts about equal Are you having difficulties driving your car?: no Do you always fasten your seat belt when you are in a car?: yes, usually During past 4 weeks, have you been bothered by the following: never: Trouble eating well?, Teeth or denture problems? and Problems using the telephone?, seldom: Tiredness or fatigue?, sometimes: Sexual problems? and often: Falling or dizzy when standing up Have you fallen 2 or more times in the past year?: No Are you afraid of falling?: No Are you a smoker?: yes, but I'm not ready to quit (Not Tobacco) During the past 4 weeks, how many drinks of wine, beer, or other alcoholic beverages did you have?: no alcohol at all Do you exercise for about 20 minutes 3 or more times a week?: no, I usually do not exercise this much Have you been given information to help with the following?: no: Hazards in your house that might hurt you? and no: Keeping track of your medications? How often do you have trouble taking medicines the way you have been told to take them?: I always take medicine as prescribed How confident are you that you can control & manage most of your health problems?: somewhat confident What is your race?: White PHQ-9 Over the last 2 weeks, how often have you been bothered by any of the following problems? 1. Little interest or pleasure in doing things: not at all 2. Feeling down, depressed, or hopeless: several days 3. Trouble falling or staying asleep, or sleeping too much: not at all 4. Feeling tired or having little energy: not at all 5. Poor appetite or overeating: not at all 6. Feeling bad about yourself - or that you are a failure or have let yourself or your family down: several days 7. Trouble concentrating on things, such as reading the newspaper or watching television: not at all 8. Moving or speaking so slowly that other people could have noticed. Or the opposite - being so fidgety or restless that you have been moving around a lot more than usual: not at all 9. Thoughts that you would be better off or of hurting yourself in some way: not at all Total score: 2 Depression Screening Interpretation: Negative Depression Screening Done: Yes 92652 - PHQ-9 Billing: Yes Source: Developed by Drs. Andrei Chavez, Jaycee Lux, Miguel Angel Banda and colleagues, with an educational alfonso from [employer]. Thrive Questionnaire Date Thrive assessed: 07/02/23 JAVED-7 AMB Questionnaire JAVED-7 Date JAVED - 7 assessed: 03/29/24 Feeling nervous, anxious, or on edge: 0 = Not at all Not being able to stop or control worryin = Not at all Worrying too much about different things: 0 = Not at all Trouble relaxin = Not at all Being so restless that it is hard to sit still: 0 = Not at all Becoming easily annoyed or irritable: 0 = Not at all Feeling afraid as if something awful might happen: 0 = Not at all Total JAVED-7 score (0-4 normal; 5-9 mild; 10-14 moderate; 15-21 severe): 0 Source: Developed by Drs. Andrei Chavez, Jaycee Lux, Miguel Angel Banda and colleagues, with an educational alfonso from [employer]. Review of Systems Const Denies poor appetite and Denies weakness Eyes Denies no additional complaints ENT Reports Normal hearing present, Denies dizziness, Denies nasal congestion, D enies tinnitus and Denies sore throat Card Denies chest pain, Denies syncope, Denies rapid heart rate and Denies dyspnea Resp Denies cough and Denies dyspnea GI Denies change in stool character, Reports constipation, Denies diarrhea, Denies nausea and Denies vomiting Denies dysuria and Denies urinary frequency Neuro Reports Normal hearing present, Denies confusion, Denies dizziness, Denies syncope and Denies weakness Psych Denies confusion Physical Exam Vital Signs: Last Vital Signs Pulse 56 03/29/24 13:46 BP 118/58 L 03/29/24 13:46 Pulse Ox 98 03/29/24 13:46 Oxygen Delivery Method Room Air 03/29/24 13:46 BMI result Body Mass Index 21.3 Const General: No confusion Orientation/consciousness: No confusion HEENT Head: Yes normocephalic Ears: external ears normal and TM's normal bilaterally Face and sinus: Yes normal facial exam Mouth: moist mucous membranes Throat: Yes tonsils normal Eyes Conjunctivae: conjunctivae normal Pupils: Equal, round and reactive pupils present and Pupil accommodation reflex normal Direct Ophthalmoscopy: normal light reflex Neck Neck: No lymphadenopathy Thyroid: Thyroid normal Chest Chest palpation & inspection: normal inspection of the chest Resp Effort & Inspection: normal respiratory effort and no audible wheezes Auscultation: clear to auscultation bilaterally, no crackles, no wheezes and lung sounds not diminished Cardio Rate: regular rate Rhythm: regular rhythm Peripheral pulses: radial pulses present and dorsalis pedis present GI Palpation (GI): no masses Auscultation: normal bowel sounds and normoactive bowel sounds Rectal Exam - Male: Yes deferred Skin General skin exam: no rashes or lesions noted Rashes: no rashes Neuro General: No confusion Cranial nerves: Yes Equal, round and reactive pupils present and Yes Normal hearing present Cognition (Neuro): normal cognition Gait exam (Neuro): Normal gait present Motor exam (neuro): 5/5 motor strength present throughout Deep tendon reflexes (DTR's): Right brachioradialis reflex intensity grade: 2+, Left brachioradialis reflex intensity grade: 2+, Right patellar reflex intensity grade: 2+ and Left patellar reflex intensity grade: 2+ Extrem General: No edema Immunizations tetanus-diphtheria toxoids-Td 2 Lf unit-2 Lf unit/0.5 mL IM suspension Performing Provider: Yonathan Spencer MD [facility] [place] [facility] Administered by: Martha Sarkar CMA on 03/29/24 14:43 Dose Route Admin Location Dispensed Lot Number Expiration Date [employer] Supervisor 0.5 mL IM Left Deltoid 0.5 mL [id number] 07/04/24 [address]-8 [employer] VIS Given Date VIS Provided VIS Publication Date 03/29/24 Single Vaccine 20 Eligibility Eligibility Date Funding Source Not [facility] Eligible 03/29/24 State funds Assessment & Plan Assessment & Plan (1) Medicare annual wellness visit, subsequent: Code(s): Z00.00 - Encounter for general adult medical examination without abnormal findings Plan: Patient is advised to eat healthy, keep well hydrated, keep active and have adequate sleep. (2) Carpal tunnel syndrome on both sides: Comment: March 2023 left this mild to moderatel, right is mild Code(s): G56.03 - Carpal tunnel syndrome, bilateral upper limbs Plan: Discussed with the patient on orthopedic referral but resolving (3) Allergy desensitization therapy: Code(s): Z51.6 - Encounter for desensitization to allergens Plan: Patient continues to follow-up with the bobcat operator for desensitization program. (4) Impaired fasting blood sugar: Code(s): R73.01 - Impaired fasting glucose Plan: Decrease the amount of carbohydrate intake, pasta, bread, rice and potatoes are all sugar and that is aside from all the sweet stuff, remember that fruits are good but they are Sweet also. (5) Hypercholesterolemia: Code(s): E78.00 - Pure hypercholesterolemia, unspecified Plan: Avoid fried foods, chicken skin, eggs, butter margarine, pastries and meat. Be it pork or beef they have a lot of cholesterol on simvastatin 5 mg once a day LDL goal of less than 130 and triglyceride of less than 150. February 2024 last blood work (6) BPH (benign prostatic hyperplasia): Code(s): N40.0 - Benign prostatic hyperplasia without lower urinary tract symptoms Qualifiers: Lower urinary tract symptom detail: urinary frequency Lower urinary tract symptom presence: symptoms present Qualified Code(s): N40.1 - Benign prostatic hyperplasia with lower urinary tract symptoms; R35.0 - Frequency of micturition Plan: Continue with terazosin. (7) Anemia: Code(s): D64.9 - Anemia, unspecified Qualifiers: Anemia type: unspecified type Qualified Code(s): D64.9 - Anemia, unspecified Plan: Continue to monitor (8) Generalized anxiety disorder: Code(s): F41.1 - Generalized anxiety disorder Plan: declined counselling referral (9) Tubular adenoma of colon: Comment: Colonoscopy June 2012 Dr. Solomon tubular adenoma May 2018 Code(s): D12.6 - Benign neoplasm of colon, unspecified Plan: Discussed about colonoscopy recommendation. Orders: Orders Td State Immunization Today Z23 - Encounter for immunization Referrals Gastroenterology Referral D12.6 - Benign neoplasm of colon, unspecified Medications: New alprazolam 0.25 mg PO BEDTIME PRN 14 tabs 0RF sleep F41.1 - Generalized anxiety disorder Quality Reporting (2019) Depression/Bipolar (159/160/161/177) PHQ-9: Total score: 2 Coding Level of Care Code Medicare Subsequent (G0439) Diagnoses Medicare annual wellness visit, subsequent Z00.00 Carpal tunnel syndrome on both sides G56.03 Allergy desensitization therapy Z51.6 Impaired fasting blood sugar R73.01 Hypercholesterolemia E78.00 Benign prostatic hyperplasia with urinary frequency N40.1; R35.0 Lower urinary tract symptom detail: urinary frequency Lower urinary tract symptom presence: symptoms present Anemia, unspecified type D64.9 Anemia type: unspecified type Generalized anxiety disorder F41.1 Tubular adenoma of colon D12.6 Additional Codes PHQ-9 - 81898 - PHQ-9 Billing: Yes ([id number])
== END 2024-03-29 14:42 | disposition home or self-care (01) ==
LOC: HO.HMCH 13:31
PROVIDERS: PCP Internal Medicine; Visit Provider Internal Medicine
DX: Z00.00 Encounter for general adult medical examination without abnormal findings (principal); G56.03 Carpal tunnel syndrome, bilateral upper limbs; Z51.6 Encounter for desensitization to allergens; R73.01 Impaired fasting glucose; E78.00 Pure hypercholesterolemia, unspecified; N40.1 Benign prostatic hyperplasia with lower urinary tract symptoms; R35.0 Frequency of micturition; D64.9 Anemia, unspecified; F41.1 Generalized anxiety disorder; D12.6 Benign neoplasm of colon, unspecified; Z23 Encounter for immunization

== ENCOUNTER → 2024-03-29 13:31 | Outpatient (BNVA) | payer OTHER, SELFPAY | PROVIDERS: PCP Internal Medicine; Visit Provider Internal Medicine | DX: Z00.00 Encounter for general adult medical examination without abnormal findings (principal); Z23 Encounter for immunization; G56.03 Carpal tunnel syndrome, bilateral upper limbs; R73.01 Impaired fasting glucose; E78.00 Pure hypercholesterolemia, unspecified; N40.1 Benign prostatic hyperplasia with lower urinary tract symptoms; R35.0 Frequency of micturition; D64.9 Anemia, unspecified; F41.1 Generalized anxiety disorder; D12.6 Benign neoplasm of colon, unspecified; Z51.6 Encounter for desensitization to allergens | CPT/HCPCS: 90471; 90714; 96127 ==

== ENCOUNTER 2024-08-19 06:24 | Day surgery (SDC) | payer MEDICARE, SELFPAY ==
[2024-08-17 12:47] VITALS: BMI 21.9
--- NOTE | 2024-08-18 11:42 | HO.ANESPROP2 ---
Documented by User: Dee Reaves NP 08/18/24 11:43 HPI - Anesthesia Eval Consult details Narrative: 68yo M for Colonoscopy PMF Active Problems Active Problems: All Active Problems Medicare annual wellness visit, subsequent (Acute) Carpal tunnel syndrome on both sides (Acute) Osteoarthritis, hand (Acute) Vision changes (Acute) Hearing difficulty (Acute) Mild anemia (Acute) COVID-19 virus infection (Acute) Allergy desensitization therapy (Acute) Annual physical exam (Acute) Impaired fasting blood sugar (Acute) Generalized anxiety disorder (Acute) Decreased diffusion capacity (Acute) Rhinitis (Acute) Cough (Acute) Anemia (Acute) Tubular adenoma of colon (Acute) Anxiety (Acute) Hypercholesterolemia (Acute) BPH (benign prostatic hyperplasia) (Acute) Past Medical History Medical History (Updated 08/19/24 @ 06:32 by Meli King RN) Environmental allergies Renal calculi Degenerative disc disease Osteoarthritis Anxiety Tubular adenoma of colon Hypercholesterolemia BPH (benign prostatic hyperplasia) Insomnia Peripheral vascular disease Vitamin D deficiency Family History Family History (Updated 03/24/23 @ 15:11 by Chanel Rivera Natacha) Father No problems noted. Mother Lung cancer Maternal Grandfather Myocardial infarction Maternal Uncle Prostate cancer Brain cancer Paternal Uncle Esophageal cancer Sister Cancer Paternal Grandmother Breast cancer Son No problems noted. Son No problems noted. Daughter No problems noted. Surgical History Surgical History Hx of vasectomy H/O colonoscopy History of lumbar surgery History of hip surgery History of right knee surgery History of tonsillectomy Social History Social History (Updated 03/29/24 @ 14:15 by Yonathan Spencer MD) Housing: House Alcohol intake: current Comment: 1 beer Q 3 months Patient Tobacco Use Status: Never used Tobacco Years Smoked: smoke weed e-Cigarette/Vaping Use: Former Use Use of substances other than those prescribed or required for medical reasons: Yes Substance Use Type Other:: last smoked yesterday Substance Use Frequency: Daily Are you DNR?: No Advance Directives: No Advance Directives Information Provided: Yes Current occupational status: employed Cognitive needs: No Hearing needs: No Vision needs: Yes Meds Allergies Allergy/AdvReac Type Severity Reaction Status Date / Time Seasonal Allergies Allergy Mild watery eyes Verified 08/19/24 06:34 Home Medications ?Medication ?Instructions ?Recorded ?Confirmed ?Last Taken ?Type cetirizine 10 mg tablet 10 mg PO DAILY PRN Allergy Symptoms 03/17/22 08/17/24 Unknown History fluticasone 250 mcg-salmeterol 50 1 ea inhalation BID 08/19/24 08/19/24 Unknown History mcg/dose blistr powdr for inhalation (Lorna Villanuevaub) Exam Height,Weight and Vital Signs: Height 6 ft 1.5 in Weight 76.204 kg Assessment and Plan Assessment Anesthesia Assessment: Chart Reviewed Documented by User: Trish Jones MD 08/19/24 07:20 [facility] Past Medical History Medical History (Updated 08/19/24 @ 06:32 by Meli King RN) Environmental allergies Renal calculi Degenerative disc disease Osteoarthritis Anxiety Tubular adenoma of colon Hypercholesterolemia BPH (benign prostatic hyperplasia) Insomnia Peripheral vascular disease Vitamin D deficiency Family History Family History (Updated 03/24/23 @ 15:11 by ARI Desai) Father No problems noted. Mother Lung cancer Maternal Grandfather Myocardial infarction Maternal Uncle Prostate cancer Brain cancer Paternal Uncle Esophageal cancer Sister Cancer Paternal Grandmother Breast cancer Son No problems noted. Son No problems noted. Daughter No problems noted. Family history of problems with anesthesia: No Surgical History Surgical History Hx of vasectomy H/O colonoscopy History of lumbar surgery History of hip surgery History of right knee surgery History of tonsillectomy History of Problems with Anesthesia: No Social History Social History (Updated 03/29/24 @ 14:15 by Yonathan Spencer MD) Housing: House Alcohol intake: current Comment: 1 beer Q 3 months Patient Tobacco Use Status: Never used Tobacco Years Smoked: smoke weed e-Cigarette/Vaping Use: Former Use Use of substances other than those prescribed or required for medical reasons: Yes Substance Use Type Other:: last smoked yesterday Substance Use Frequency: Daily Are you DNR?: No Advance Directives: No Advance Directives Information Provided: Yes Current occupational status: employed Cognitive needs: No Hearing needs: No Vision needs: Yes Meds Allergies Allergy/AdvReac Type Severity Reaction Status Date / Time Seasonal Allergies Allergy Mild watery eyes Verified 08/19/24 06:34 Home Medications ?Medication ?Instructions ?Recorded ?Confirmed ?Last Taken ?Type cetirizine 10 mg tablet 10 mg PO DAILY PRN Allergy Symptoms 03/17/22 08/17/24 Unknown History fluticasone 250 mcg-salmeterol 50 1 ea inhalation BID 08/19/24 08/19/24 Unknown History mcg/dose blistr powdr for inhalation (Wixela Inhub) Exam Airway Mallampati Class: II TM Dist: >3cm Neck ROM: Full Partial: Upper and Lower Assessment and Plan Assessment Anesthesia Assessment: Anesthesia Plan Discussed Final Anesthetic Review Family History of Problems with Anesthesia: No History of Problems with Anesthesia: No NPO: Yes ASA Class: II Final Preanesthetic Review: No Changes in Pt Med Stat, Meds/Allgs Chart Reviewed, Consent Obtained/Reviewed and Anes Risks/Benef Reviewed Patient Risk: Low Procedure Risk: Low Anesthetic Plan Anesthetic Plan: TIVA Disposition: Standard PACU
[2024-08-19 06:35] VITALS: BMI 22.4
[2024-08-19 06:45] VITALS: BP 112/67; PULSE 65; RESP 15; TEMP 36.6; O2SAT 95
[2024-08-19] MEDS: Lactated Ringers 1,000 ML 100 ML IVCONT (06:53)
--- NOTE | 2024-08-19 07:27 | MHC.SHP ---
Pre-Procedural Eval Section A - 24 Hr Update-Section A only Date of Service: 08/19/24 Section B - Complete if H&P > 30 days Chief Complaint: screening Details of Present Illness: see H&P no changes Relevant Family History (Specify if Yes): No Relevant Social History: None Present Medications: see Short Stay Collaborative assessment History of Previous Operations: No relevant previous surgery Allergies: Allergies Allergy/AdvReac Type Severity Reaction Status Date / Time Seasonal Allergies Allergy Mild watery eyes Verified 08/19/24 06:34 Review of Systems Sugical H&P ROS: Negative: Constitution, Cardiovascular, Respiratory, Neurological, Psychiatric, Hem-Onc, Allergic/Immunologic, Gastrointestinal, Genitourinary, Musculoskeletal, Integumentary, Endocrine and Eyes/Ears/Nose/Throat Exam Surgical H&P Exam: Normal: HEENT, Normal: Heart, Normal: Lungs, Normal: Extremities, Normal: Abdomen, Normal: Skin and Normal: Neurological Plan Diagnosis/Plan: Unchanged I have reviewed the history and physical and performed a pertinent physical examination on my patient. No changes have occurred unless specified. Time Spent With Patient Time: Total time managing care of this patient today ____ minutes.
[2024-08-19 08:00] VITALS: BP 116/65; PULSE 70; RESP 16; TEMP 36.1; O2SAT 99
[2024-08-19 08:15] VITALS: BP 116/61; PULSE 64; RESP 16; TEMP 36.1; O2SAT 97
--- NOTE | 2024-08-19 09:01 | OP_ITS ---
DATE OF SERVICE: 08/19/2024 SURGEON: Fernando Solomon MD INDICATIONS: Colon cancer screening PREOPERATIVE DIAGNOSIS: POSTOPERATIVE DIAGNOSIS: PROCEDURE PERFORMED: Colonoscopy to the terminal ilium. ESTIMATED BLOOD LOSS: COMPLICATIONS: ANESTHESIA: Monitored anesthesia care. ASSISTANTS: SPECIMENS: DESCRIPTION OF PROCEDURE: A history and physical was performed. The risks and benefits of the procedure were explained to the patient. Informed consent was obtained. The patient was placed in the left lateral decubitus position. A digital rectal exam was performed and was found to be normal. The Olympus pediatric video colonoscope was introduced into the rectum and advanced to the cecum. The cecum was identified by transillumination, palpation, and identification of ileocecal valve. Examination was performed. The scope was removed. He tolerated the procedure well and was returned to the recovery area in stable condition. FINDINGS: The terminal ileum was examined and appeared normal. The visualized colonic mucosa was normal. The quality of the prep was good. No polyps were identified. There was mild sigmoid diverticulosis. Retroflexed examination showed small internal hemorrhoids. IMPRESSION: Normal colonoscopy. RECOMMENDATION: 1. Follow up as needed. 2. Repeat colonoscopy is recommended in 10 years for average-risk individuals. MD ESTRELLA Palencia/WANDA / [id number]
== END 2024-08-19 08:32 | disposition home or self-care (01) ==
PROVIDERS: PCP Internal Medicine; Visit Provider Internal Medicine Gastroenterology
PROC: 0DJD8ZZ Inspection of Lower Intestinal Tract, Via Natural or Artificial Opening Endoscopic (ICD-10-PCS; CPT 45378; principal; 2024-08-19 07:30)
DX: Z12.11 Encounter for screening for malignant neoplasm of colon (principal); Z86.0101 Personal history of adenomatous and serrated colon polyps; K57.30 Diverticulosis of large intestine without perforation or abscess without bleeding; K64.8 Other hemorrhoids; R09.89 Other specified symptoms and signs involving the circulatory and respiratory systems; Z80.1 Family history of malignant neoplasm of trachea, bronchus and lung; N20.0 Calculus of kidney; N40.0 Benign prostatic hyperplasia without lower urinary tract symptoms; Z98.52 Vasectomy status; Z79.51 Long term (current) use of inhaled steroids; Z79.899 Other long term (current) drug therapy; Z98.890 Other specified postprocedural states
CPT/HCPCS: G0105; J0330; J2003; J2704

== ENCOUNTER 2025-03-30 13:42 | Outpatient (AMB) | payer MEDICARE, SELFPAY ==
--- OUTSIDE RECORDS SUMMARY | 2024-08-19 02:30 | XMS_ITS ---
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 Name Role Phone Yonathan Spencer MD Primary Care Provider Fernando Cintron Jr REASON FOR VISIT screening Encounters Encounter Location Date Provider Diagnosis [facility] [address] [place] [id number] 08/19/2024 Fernando Solomon Jr Colon cancer screening Z12.11 and Personal history of adenomatous and serrated colon polyps Z86.0101 Assessments Encounter Date Diagnosis (ICD Code) Assessment Notes Treatment Notes Treatment Clinical Notes Section Notes 08/19/2024 Colon cancer screening (ICD-10 - Z12.11) 08/19/2024 Personal history of adenomatous and serrated colon polyps (ICD-10 - Z86.0101) Plan Of Treatment No Information Progress Notes * URI KEMP HDOB:[birth year] (69 yo M)Acc No.[id number]:08/19/2024 COLON WITH MAC Patient: URI CROFT Provider: Daysi Solomon MD :1955 A ge:68 Y S ex:Male Date:08/19/2024 [address]:[address] [place], [place] [address] [id number] Pcp:Yonathan Spencer MD Subjective: * Chief Complaints: * 1 . Screening. * Medical History: Objective: * Vitals: Assessment: * Assessment: 1. C olon cancer screening - Z12.11 (Primary) 2 . P ersonal history of adenomatous and serrated colon polyps - Z86.0101 Plan: * Treatment: * Procedure Codes: 4 5378 DIAGNOSTIC COLONOSCOPY, 0529F INTRVL 3+YRS PTS CLNSCP DOCD * * The named appointment provid er may or may not be the originator of this progress note, and it is not deemed complete until electronically signed by the appointment provider. Sign off status: Pending * Provider: Daysi Solomon MD Date: 0 08/19/2024 Generated for Amadou sandhu/Alycia/Yaelsmitting on: 05/30/2024 04:42 PM EST
--- NOTE | 2025-03-30 13:48 | A.OFFVIS_ITS ---
Intake Vital Signs 03/30/25 13:49 Height 6 ft 1.5 in Weight 167 lb 4 oz BMI 21.8 BP 130/74 Blood Pressure Location Lt brachial Position Sitting Pulse 68 Pulse Source Pulse Oximeter Temp 97.1 F Temp Source Temporal Artery Scan Pulse Oximetry (%) 95 Oxygen Delivery Method Room Air Intake Visit Reasons: swv Allergies Seasonal Allergies Allergy (Mild, Verified 03/30/25 13:51) watery eyes Medication List - Last Reconciled 03/30/25 by Yonathan Spencer MD albuterol sulfate 90 mcg/actuation (Ventolin HFA) 2 puffs inhalation Q6H PRN cetirizine 10 mg PO DAILY PRN fluticasone propion-salmeterol 250-50 mcg/dose (Wixela Inhub) 1 ea inhalation BID fluticasone propionate 50 mcg/actuation (Flonase Allergy Relief) 1 spray intranasal DAILY terazosin 10 mg PO BEDTIME HPI swv HPI Details Garrett of care Dr. Solomon gastroenterology Allergy and immunology [place], pulmonary Dr. Mcdonald. fall x 2 summer 2024, [facility] Medical History Environmental allergies Renal calculi Degenerative disc disease Osteoarthritis Tubular adenoma of colon Hypercholesterolemia BPH (benign prostatic hyperplasia) Insomnia Peripheral vascular disease Vitamin D deficiency Surgical History Hx of vasectomy H/O colonoscopy History of lumbar surgery History of hip surgery History of right knee surgery History of tonsillectomy Family History Father No problems noted. Mother Lung cancer Maternal Grandfather Myocardial infarction Maternal Uncle Prostate cancer Brain cancer Paternal Uncle Esophageal cancer Sister Cancer Paternal Grandmother Breast cancer Son No problems noted. Son No problems noted. Daughter No problems noted. Social History (Updated 03/30/25 @ 14:05 by Yonathan Spencer MD) Housing: House Alcohol intake: current Comment: 1 beer Q 3 months, QO week beer Patient Tobacco Use Status: Never used Tobacco Years Smoked: smoke weed e-Cigarette/Vaping Use: Former Use Current occupational status: employed Cognitive needs: No Hearing needs: No Vision needs: Yes Questionnaire Medicare Wellness Checkup [age] What gender do you identify with?: male During the past 4 weeks, how much have you been bothered by emotional problems such as feeling anxious, depressed, irritable, sad or downhearted, and blue?: not at all During the past 4 weeks, has your physical & emotional health limited your soc ial activities with family, friends, neighbors, or groups?: not at all During the past 4 weeks, how much bodily pain have you generally had?: moderate pain During the past 4 weeks, was someone available to help you if you needed & wanted help?: yes, as much as I wanted During the past 4 weeks, what was the hardest physical activity you could do for at least 2 minutes?: heavy Can you get to places out of walking distance without help? (For eg., can you travel alone on buses, taxis or drive your car?): Yes Can you go shopping for groceries or clothes without someone's help?: Yes Can you prepare your own meals?: Yes Can you do your housework without help?: Yes Because of any health problems, do you need the help of another person with your personal care needs such as eating, bathing, dressing or getting around the house?: No Can you handle your own money without help?: Yes During the past 4 weeks, how would you rate your health in general?: very good During the past 4 weeks how have things been going for you?: pretty well Are you having difficulties driving your car?: no Do you always fasten your seat belt when you are in a car?: yes, usually During past 4 weeks, have you been bothered by the following: never: Falling or dizzy when standing up, Sexual problems?, Trouble eating well?, Teeth or denture problems? and Problems using the telephone? and sometimes: Tiredness or fatigue? Have you fallen 2 or more times in the past year?: Yes Are you afraid of falling?: No Are you a smoker?: no During the past 4 weeks, how many drinks of wine, beer, or other alcoholic beverages did you have?: 1 drink or less per week Do you exercise for about 20 minutes 3 or more times a week?: no, I usually do not exercise this much Have you been given information to help with the following?: yes: Hazards in your house that might hurt you? and yes: Keeping track of your medications? How often do you have trouble taking medicines the way you have been told to take them?: I always take medicine as prescribed How confident are you that you can control & manage most of your health problems?: very confident What is your race?: White PHQ-9 Over the last 2 weeks, how often have you been bothered by any of the following problems? 1. Little interest or pleasure in doing things: not at all 2. Feeling down, depressed, or hopeless: not at all 3. Trouble falling or staying asleep, or sleeping too much: several days 4. Feeling tired or having little energy: several days 5. Poor appetite or overeating: not at all 6. Feeling bad about yourself - or that you are a failure or have let yourself or your family down: not at all 7. Trouble concentrating on things, such as reading the newspaper or watching television: not at all 8. Moving or speaking so slowly that other people could have noticed. Or the opposite - being so fidgety or restless that you have been moving around a lot more than usual: not at all 9. Thoughts that you would be better off or of hurting yourself in some way: not at all Total score: 2 Depression Screening Interpretation: Positive Depression Screening Done: Yes 95599 - PHQ-9 Billing: Yes Source: Developed by Drs. Andrei Chavez, Jaycee Lux, Miguel Angel Banda and colleagues, with an educational alfonso from [employer]. Review of Systems Const Denies poor appetite and Denies weakness Eyes Denies no additional complaints ENT Reports Normal hearing present, Denies dizziness, Denies nasal congestion, Denies tinnitus and Denies sore throat Card Denies chest pain, Denies syncope, Denies rapid heart rate and Denies dyspnea Resp Denies cough and Denies dyspnea GI Denies change in stool character, Reports constipation, Denies diarrhea, Denies nausea and Denies vomiting Denies dysuria and Denies urinary frequency Neuro Reports Normal hearing present, Denies confusion, Denies dizziness, Denies syncope and Denies weakness Psych Denies confusion Physical Exam Vital Signs: Last Vital Signs Temp 97.1 F 03/30/25 13:49 Pulse 68 03/30/25 13:49 BP 130/74 03/30/25 13:49 Pulse Ox 95 03/30/25 13:49 Oxygen Delivery Method Room Air 03/30/25 13:49 BMI result Body Mass Index 21.8 Const General: No confusion Orientation/consciousness: No confusion HEENT Head: Yes normocephalic Ears: external ears normal and TM's normal bilaterally Face and sinus: Yes normal facial exam Mouth: moist mucous membranes Throat: Yes tonsils normal Eyes Conjunctivae: conjunctivae normal Pupils: Equal, round and reactive pupils present and Pupil accommodation reflex normal Direct Ophthalmoscopy: normal light reflex Neck Neck: No lymphadenopathy Thyroid: Thyroid normal Chest Chest palpation & inspection: normal inspection of the chest Resp Effort & Inspection: normal respiratory effort and no audible wheezes Auscultation: clear to auscultation bilaterally, no crackles, no wheezes and lung sounds not diminished Cardio Rate: regular rate Rhythm: regular rhythm Peripheral pulses: radial pulses present and dorsalis pedis present GI Other: Guaiac negative stools prostate normal size Palpation (GI): no masses Auscultation: normal bowel sounds and normoactive bowel sounds Rectal Exam - Male: Yes deferred Male General Exam: Yes normal external exam Skin General skin exam: no rashes or lesions noted Rashes: no rashes Neuro General: No confusion Cranial nerves: Yes Equal, round and reactive pupils present and Yes Normal hearing present Cognition (Neuro): normal cognition Gait exam (Neuro): Normal gait present Motor exam (neuro): 5/5 motor strength present throughout Deep tendon reflexes (DTR's): Right brachioradialis reflex intensity grade: 2+, Left brachioradialis reflex intensity grade: 2+, Right patellar reflex intensity grade: 2+ and Left patellar reflex intensity grade: 2+ Extrem General: No edema Assessment & Plan Assessment & Plan (1) Medicare annual wellness visit, subsequent: Code(s): Z00.00 - Encounter for general adult medical examination without abnormal findings Plan: Patient is advised to eat healthy, keep well hydrated, keep active and have adequate sleep. (2) Tubular adenoma of colon: Comment: Colonoscopy June 2012 Dr. Solomon tubular adenoma May 2018, July 2024 Code(s): D12.6 - Benign neoplasm of colon, unspecified Plan: Recent colonoscopy normal 10 years (3) Impaired fasting blood sugar: Code(s): R73.01 - Impaired fasting glucose Plan: Decrease the amount of carbohydrate intake, pasta, bread, rice and potatoes are all sugar and that is aside from all the sweet stuff, remember that fruits are good but they are Sweet also. (4) Hypercholesterolemia: Code(s): E78.00 - Pure hypercholesterolemia, unspecified Plan: Avoid fried foods, chicken skin, eggs, butter margarine, pastries and meat. Be it pork or beef they have a lot of cholesterol (5) Generalized anxiety disorder: Code(s): F41.1 - Generalized anxiety disorder Plan: Stable on alprazolam as needed (6) Nasal congestion: Code(s): R09.81 - Nasal congestion Plan History of Present Illness The patient is a 69-year-old male presenting for an annual wellness visit. He has a past medical history of benign prostatic hyperplasia (BPH), hypercholesterolemia, a history of tubular adenoma of the colon, and generalized anxiety disorder. His last colonoscopy was in 2018, and a Cologuard test in July 2024 was negative, with a recommendation to repeat in 10 years. The patient's chief complaint is a chronic cough with mucus production, which is more prominent in the morning, along with nasal congestion and suspected postnasal drip, which has been ongoing for a long time. He reports an episode of yellow phlegm about six months ago that subsequently resolved. He uses an albuterol rescue inhaler and has used Zyrtec for allergies. His spa coordinator was Dr. Cavazos, his last inserter is Dr. Solomon, and his airfreight operations agent is Dr. Burciaga. Regarding his social history, the patient reports drinking one beer every other week or monthly and denies recreational drug use. He confirms that he continues to smoke. The patient has fallen twice in the past year; once at the beach after failing to see a step, and another time tripping over a stool. He denies any episodes of syncope or dizziness. For health maintenance, he recently completed the two-part shingles vaccination series, with the second shot received last month. Blood work from February was notable for hemoglobin/hematocrit of 13.3/13.1, normal renal and liver function, normal blood sugar, and an LDL of 114. Health Maintenance - Colon Cancer Screening: The patient's last colonoscopy was in 2018, which found a tubular adenoma. - A Cologuard test in July 2024 yielded negative results, and the plan is to repeat screening in 10 years. - Vaccinations: The patient recently completed the two-part shingles vaccine series. - Cardiovascular Health: Blood pressure is well-controlled. - Last lipid panel showed an LDL of 114 and normal triglycerides. - Substance Use: Patient continues to smoke. - Alcohol consumption is minimal, with one beer consumed every other week to monthly. - Fall Prevention: The patient has a history of two falls in the past year. Social History - Alcohol Use: Reports drinking one beer every other week or once a month. - Tobacco Use: Reports that he is still smoking. - Functional Status: Reports two falls in the last year, one from missing a step and another from tripping over a stool. Review of Systems - Constitutional: Denies fevers. - HEENT: Reports tinnitus and feeling congested most of the time. - Denies dysphagia. - Respiratory: Reports a chronic cough with phlegm production, particularly in the mornings. - Denies waking up with shortness of breath and denies chest pain. - Cardiovascular: Denies chest pain, dizziness, and syncope. - Gastrointestinal: Reports normal bowel movements. - Denies nausea. - Genitourinary: Reports nocturia, waking 1-2 times per night to urinate. Physical Exam General: Cooperative, healthy appearing, comfortable, no acute distress and well developed Orientation: Patient oriented x3 Limitations: No limitations Head: Normal to inspection Ears: Hearing grossly normal bilaterally, but patient reports ringing in ears Nose: Normal external nose present, patient reports feeling congested almost all the time Face and sinus: Normal facial exam Eyes: Appearance normal, both eyes and all related structures Neck: Normal visual inspection and Yes full ROM Respiratory: Normal respiratory effort and able to speak in complete sentences. Clear to auscultation bilaterally, but patient reports coughing and spitting up mucus every morning Cardiovascular: Regular rate and rhythm. Normal S1 and S2 GI: Normal to inspection. Soft to palpation and nontender Skin: No rashes or lesions noted Neuro: Patient oriented x3 Extremities: Normal to inspection Results - Labs (February): Hemoglobin 13.3, Hematocrit 13.1. - Renal function, blood sugar, and liver function were normal. - LDL was 114 and triglycerides were normal. - Tests: Cologuard test from July 2024 was negative. Plan Patient was informed and verbally consented to the use of an ambient scribe for clinic note documentation during this visit. 1. Chronic Cough And Allergic Rhinitis The patient's chronic cough, phlegm, and congestion are likely multifactorial, related to underlying allergies with postnasal drip and irritation from tobacco use. An episode of yellow phlegm 6 months ago was noted, but it resolved. A chest X-ray will be ordered to further evaluate the chest and sinuses to rule out underlying pathology. 2. Tobacco Use The patient confirms ongoing tobacco use. It was explained that smoking is an irritant that contributes to his respiratory symptoms. 3. Health Maintenance: Colon Cancer Screening The patient has a history of tubular adenoma found on a 2019 colonoscopy. A recent Cologuard test was negative. The plan is to repeat screening in 10 years. 4. Hypercholesterolemia The patient's hypercholesterolemia is stable, with a recent LDL of 114. No changes to the current management plan were discussed. 5. Benign Prostatic Hyperplasia The patient has a history of BPH and reports nocturia 1-2 times per night, which is considered stable. He is attempting to manage this by reducing coffee intake. No further interventions are planned at this time. Discussion Notes I discussed with the patient that his chronic cough and phlegm will be investigated with a chest X-ray to look for any underlying cause. I also explained that the dizziness he feels when holding his breath for a long time is a normal physiological response. I recommended the shingles vaccine, explaining its effectiveness in preventing the disease, and noted that while not required, it is beneficial. We reviewed the importance of maintaining good hydration, a healthy diet, and staying physically active. Patient Instructions - Go for a chest X-ray to find out what is causing your cough. - Continue to drink plenty of fluids, eat a healthy diet, and keep yourself active. - Your recent stool test for colon cancer was negative, so you will not need another screening for 10 years. - It is recommended that you get the shingles vaccine to prevent shingles. Orders: Orders Complete Blood Count Auto Diff Today R73.01 - Impaired fasting glucose Lipid Panel Today E78.00 - Pure hypercholesterolemia, unspecified, R73.01 - Impaired fasting glucose Ferritin Today R73.01 - Impaired fasting glucose Magnesium Today R73.01 - Impaired fasting glucose XR chest 2V Today R05.9 - Cough, unspecified CT sinus wo IV con Today R09.81 - Nasal congestion Hemoglobin A1c Today R73.01 - Impaired fasting glucose Free T4 (Free Thyroxine) Today R73.01 - Impaired fasting glucose Thyroid Stimulating Hormone Today R73.01 - Impaired fasting glucose Comprehensive Met. Panel Today R73.01 - Impaired fasting glucose Vitamin B12 and Folate Today R73.01 - Impaired fasting glucose Prostate Specific Antigen Scr Today R73.01 - Impaired fasting glucose IRON PROFILE Today R73.01 - Impaired fasting glucose Reticulocyte Count Today R73.01 - Impaired fasting glucose Medications: New ipratropium bromide administer into each nostril 2 sprays intranasal BID 30 mL 0RF J31.0 - Chronic rhinitis Quality Reporting (2019) Depression/Bipolar (159/160/161/177) PHQ-9: Total score: 2 Coding Level of Care Code Medicare Subsequent (G0439) Diagnoses Medicare annual wellness visit, subsequent Z00.00 Tubular adenoma of colon D12.6 Impaired fasting blood sugar R73.01 Hypercholesterolemia E78.00 Generalized anxiety disorder F41.1 Nasal congestion R09.81 Additional Codes PHQ-9 - 46562 - PHQ-9 Billing: Yes ([id number])
[2025-03-30 13:49] VITALS: BP 130/74; PULSE 68; TEMP 36.2; O2SAT 95; BMI 21.8
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
== END 2025-03-30 14:27 | disposition home or self-care (01) ==
LOC: HO.HMCH 13:42
PROVIDERS: PCP Internal Medicine; Visit Provider Internal Medicine
DX: Z00.00 Encounter for general adult medical examination without abnormal findings (principal); D12.6 Benign neoplasm of colon, unspecified; R73.01 Impaired fasting glucose; E78.00 Pure hypercholesterolemia, unspecified; F41.1 Generalized anxiety disorder; R09.81 Nasal congestion

== ENCOUNTER → 2025-03-30 13:42 | Outpatient (BNVA) | payer MEDICARE, SELFPAY | PROVIDERS: PCP Internal Medicine; Visit Provider Internal Medicine | DX: Z00.00 Encounter for general adult medical examination without abnormal findings (principal); D12.6 Benign neoplasm of colon, unspecified; R73.01 Impaired fasting glucose; E78.00 Pure hypercholesterolemia, unspecified; F41.1 Generalized anxiety disorder; R09.81 Nasal congestion; R05.3 Chronic cough; J30.9 Allergic rhinitis, unspecified; N40.0 Benign prostatic hyperplasia without lower urinary tract symptoms | CPT/HCPCS: 96127 ==